=== PATIENT | male | born 1990 | race Caucasian/White ===

== ENCOUNTER 2017-05-03 21:30 | Emergency (ER) | payer SELFPAY ==
[~2017-05-03] VITALS: Ht 177.8 cm; Wt 68.5 kg
[2017-05-03 21:36] VITALS: BP 134/85; PULSE 74; RESP 16; TEMP 98.2; O2SAT 99
--- NOTE | 2017-05-03 22:25 | PD ---
HPI Chief Complaint: Skin Problem Time Seen by Provider: 22:17 Travel History International Travel<30 days: No Contact w/Intl Traveler<30days: No Traveled to known affect area: No History of Present Illness HPI 26-year-old male with 8 months of rash to the penile shaft. Symptoms have improved after recently applying Lotrimin ointment. No area subcentimeter of mild erythema without ulceration fleshy wartlike changes vesicles pustules drainage or pain. Patient has been treated in the past for Chlamydia but does not note any penile discharge. Part also treated. Patient has noted odor after intercourse. No dysuria frequency urgency or pain. PFSH Past Medical History Narrative Medical STI; no surgery; no tobacco; nursing notes reviewed Medical History: Denies Significant Hx Tetanus Vaccination: > 5 Years Influenza Vaccination: No ?: Not Past Surgical History Surgical History: No Previous Surgery Social History Alcohol Use: No Tobacco Use: No Substance Use: No Allergies-Medications (Allergen,Severity, Reaction): Coded Allergies: No Known Allergies (Unverified , 05/03/17) Reported Meds & Prescriptions Reported Meds & Active Scripts Active No Active Prescriptions or Reported Medications Review of Systems Except as stated in HPI: all other systems reviewed are Neg Physical Exam Narrative GENERAL: Well-developed well-nourished male in no distress no respiratory distress SKIN: Warm and dry. : Circumcised male no penile discharge no vesicles no pustules no ulceration no chancre no induration no erythema and small subcentimeter pinkish flat area on the glans without warty fleshy changes; bilaterally descended testicles no mass positive cremasteric reflex Data Data Last Documented VS Vital Signs Date Time Temp Pulse Resp B/P Pulse Ox O2 Delivery O2 Flow Rate FiO2 05/03/17 21:36 98.2 74 16 134/85 99 MDM Medical Decision Making Medical Screen Exam Complete: Yes Emergency Medical Condition: Yes Medical Record Reviewed: Yes Differential Diagnosis Contact dermatitis, allergic dermatitis, tenia cruris, STI; not consistent with genital warts or genital herpes Narrative Course Patient with subcentimeter mild pink flat non-ulcerative pigmentation at the head of the penis without vesicles pustules ulceration edema erythema excoriation or tenderness also no verrucous changes with out evidence of penile discharge. Patient has started using [id number] Lotrimin topical with improvement of symptoms decided to come get area checked out. Specimen collected for PCR chlamydia and GC although no discharge and has recently been treated and partner asymptomatic. Patient states did have discharge prior to treatment. Patient denies other concerns or complaints. Diagnosis Primary Impression: Tinea cruris Referrals: [facility] Dept. call for appointment Patient Instructions: General Instructions Additional Instructions: continue with Lotrimin OTC apply twice daily for 6 weeks Follow-up with primary care provider/[facility] Department Return to the emergency department for any concerns or change in condition Med/Other Pt SpecificInfo: No Change to Meds Scripts No Active Prescriptions or Reported Meds Disposition: 01 DISCHARGE HOME Condition: Stable Yudi Dumas MD May 03, 2017 22:25
[2017-05-03] MEDS ORDERED: LIDOCAINE HCL 1% 50 ML VIAL IM ONE (23:45)
[2017-05-03] MEDS ORDERED: cefTRIAXone 250 MG VIAL IM ONE (23:45)
[2017-05-03] MEDS ORDERED: AZITHROMYCIN 250 MG TAB PO ONE (23:45)
[2017-05-04 04:39] LABS: CHLAMYDIA PCR DETECTED (NOT DETECT); NEISSERIA PCR NOT DETECTED (NOT DETECT)
== END 2017-05-03 22:40 | disposition home or self-care (01) ==
LOC: PHEFT 21:30
DX: B35.6 Tinea cruris (principal); A56.01 Chlamydial cystitis and urethritis
CPT/HCPCS: 87491; 87591; 99283; J0696